=== PATIENT | female | born 1970 | race Caucasian/White ===

== ENCOUNTER → 2018-04-05 | Outpatient (CLI) | payer BC ==
--- NOTE | 2018-04-05 15:43 | XR ---
EXAMINATION TYPE: XR soft tissue neck DATE OF EXAM: 04/05/2018 COMPARISON: NONE HISTORY: Palpable abnormality of the neck. TECHNIQUE: Frontal and lateral soft tissue neck radiographs were obtained FINDINGS: There is no evidence of prevertebral soft tissue swelling. There is straightening of the us ual cervical lordosis. Anterior bridging osteophyte is seen at C4-C5. No radio opaque foreign body is seen. Airway is maintained. Lung apices are unremarkable. IMPRESSION: No radiographic abnormality of the soft tissues in the neck. Mild degenerative changes of the cervical spine. CT or targeted ultrasound could be performed for further evaluation of the palpa ble abnormality.
== END | disposition home or self-care (01) ==
LOC: RADXRMAIN 15:15
PROVIDERS: ATTEND Nurse Practitioner Family
DX: J02.9 Acute pharyngitis, unspecified (principal)
CPT/HCPCS: 70360

== ENCOUNTER → 2019-11-18 | Outpatient (CLI) | payer BC ==
--- NOTE | 2019-11-24 09:33 | MM ---
Reason for exam: screening (asymptomatic). Last mammogram was performed 5 years and 1 month ago. History: Took hormonal contraceptives for 10 years. Physical Findings: A clinical breast exam by your physician is recommended on an annual basis and results should be correlated with mammographic findings. MG 3D Screening Mammo W/Cad Bilateral CC and MLO view(s) were taken. Prior study comparison: October 13, 2014, mammogram, performed at [facility]. There is a stable left upper outer quadrant middle septh mass back to 2013. No suspicious abnormality. No significant changes when compared with prior studies. ASSESSMENT: Benign, BI-RAD 2 RECOMMENDATION: Routine screening mammogram of both breasts in 1 year.
== END | disposition home or self-care (01) ==
LOC: RADMAMWWP 16:05
PROVIDERS: ATTEND Family Medicine
DX: Z12.31 Encounter for screening mammogram for malignant neoplasm of breast (principal)
CPT/HCPCS: 77063; 77067

== ENCOUNTER → 2021-08-22 | Outpatient (CLI) | payer BC | END | disposition home or self-care (01) | LOC: LABWHC1 11:38 | PROVIDERS: ATTEND Family Medicine | DX: Z20.822 Contact with and (suspected) exposure to COVID-19 (principal); J06.9 Acute upper respiratory infection, unspecified | CPT/HCPCS: 87502; U0003; C9803 ==

== ENCOUNTER 2021-08-26 15:28 | Inpatient (IN) | payer BC ==
--- NOTE | 2021-08-26 18:11 | XR ---
EXAMINATION TYPE: XR chest 2V DATE OF EXAM: 08/26/2021 COMPARISON: NONE HISTORY: 50 years Female. STUDY INDICATION GIVEN: cough, rib pain . TECHNIQUE: Frontal and lateral chest radiographs IMPRESSION: There is mild prominence of the peripheral interstitium in the lower lobes which is nonspecific but m ay be reflective of an interstitial edema related process such as atypical pneumonia. No focal airspace opacity, pneumothorax or pleural effusion. The heart is enlarged. No acute osseous abnormalities seen.
--- NOTE | 2021-08-26 18:19 | ED ---
General Adult HPI - General Chief complaint: Shortness of Breath Stated complaint: Coughing up blood Time Seen by Provider: 08/26/21 17:54 Source: patient, RN notes reviewed Mode of arrival: ambulatory Limitations: no limitations - History of Present Illness Initial comments: Well-appearing 50-year-old female, alert and oriented 4, presents to the [facility] room with 10 days of cough. Patient states 3 weeks ago she developed some diarrhea was tested for coronavirus and was negative. For the past 10 days she's had cough with epigastric abdominal pain radiates around to her posterior right ribs. She states that she's been feeling worsening shortness of breath over the past 3 days and today was coughing up some blood. She was seen by her primary care doctor who put her on steroids and antibiotics this week. She states she is unable to tolerate steroids but was unable to finish the antibiotics yesterday. Oxygen saturation is 99%. She does have a history of seizures. -: days(s) (10) Location: chest (Right-sided rib), abdomen (Epigastric) Severity scale (1-10): 2 Quality: aching Consistency: constant Improves with: rest Worsens with: other (Cough) Associated Symptoms: cough (With hemoptysis) Treatments Prior to Arrival: none - Related Data Home Medications Medication Instructions Recorded Confirmed clonazePAM [KlonoPIN] 0.5 mg PO TID PRN 04/11/14 08/26/21 lamoTRIgine [LaMICtal] 200 mg PO TID 04/11/14 08/26/21 Losartan [Cozaar] 25 mg PO DAILY 08/26/21 08/26/21 Zonisamide [Zonegran] 200 mg PO BID 08/26/21 08/26/21 lamoTRIgine [LaMICtal] 100 mg PO HS PRN 08/26/21 08/26/21 levETIRAcetam [Keppra] 1,000 mg PO HS 08/26/21 08/26/21 Allergies Allergy/AdvReac Type Severity Reaction Status Date / Time carbamazepine [From Tegretol] Allergy Unknown Verified 08/26/21 18:49 phenytoin sodium Allergy Unknown Verified 08/26/21 18:49 [From Dilantin] phenytoin sodium extended Allergy Unknown Verified 08/26/21 18:49 [From Dilantin] Review of Systems ROS Statement: Those systems with pertinent positive or pertinent negative responses have been documented in the HPI. ROS Other: All systems not noted in ROS Statement are negative. Past Medical History Past Medical History: Seizure Disorder History of Any Multi-Drug Resistant Organisms: None Reported Additional Past Surgical History / Comment(s): BUNION RIGHT FOOT Past Psychological History: No Psychological Hx Reported Smoking Status: Never smoker Past Alcohol Use History: Occasional Past Drug Use History: None Reported General Exam Limitations: no limitations General appearance: alert, in no apparent distress Head exam: Present: atraumatic, normocephalic, normal inspection Eye exam: Present: normal appearance, EOMI. Absent: scleral icterus, conjunctival injection, periorbital swelling ENT exam: Present: normal exam, normal oropharynx, mucous membranes moist Neck exam: Present: normal inspection, full ROM. Absent: tenderness, meningismus, lymphadenopathy Respiratory exam: Present: normal lung sounds bilaterally. Absent: respiratory distress, wheezes, rales, rhonchi, stridor Cardiovascular Exam: Present: regular rate, normal rhythm, normal heart sounds. Absent: systolic murmur, diastolic murmur, rubs, gallop, clicks GI/Abdominal exam: Present: soft, normal bowel sounds. Absent: distended, tenderness, guarding, rebound, rigid Extremities exam: Present: normal inspection, full ROM, normal capillary refill. Absent: tenderness, pedal edema, joint swelling, calf tenderness Back exam: Absent: tenderness, CVA tenderness (R), CVA tenderness (L) Neurological exam: Present: alert, oriented X3, normal gait Psychiatric exam: Present: normal affect, normal mood Skin exam: Present: warm, dry, intact, normal color. Absent: rash, cyanosis, diaphoretic Course Vital Signs 08/26/21 08/26/21 08/26/21 17:09 19:12 22:00 Temperature 98.5 F Pulse Rate 90 87 98 Respiratory 18 18 18 Rate Blood Pressure 121/81 133/77 136/81 O2 Sat by Pulse 99 98 99 Oximetry EKG Findings - EKG Results: EKG: sinus rhythm (Ventricular rate of 80, [place] interval 0.182, QRS of 0.72, QTC 0.447) Medical Decision Making - Medical Decision Making Patient was seen by primary care doctor and tested negative for Covid on Sunday. She was prescribed and finished her antibiotics but was unable to tolerate the steroids. She is coming in today coughing up blood with shortness of breath. Chest x-ray shows no acute osseous abnormalities. No pneumothorax or pleural effusion noted. CT images show an acute pulmonary arterial embolism with a right lower lobe peripheral segmental infarction. There is ground glass like opacities concerning for multifocal infection. Patient is covid positive. Patient will be admitted and started on heparin. Patient is agreeable to this plan of care. Case discussed with Dr. Dinero. - Lab Data Result diagrams: 08/26/21 19:10 08/26/21 19:10 Lab Results 08/26/21 08/26/21 08/26/21 Range/Units 19:10 19:10 19:10 WBC 5.1 (3.8-10.6) k/uL RBC 4.07 (3.80-5.40) m/uL Hgb 12.2 (11.4-16.0) gm/dL Hct 37.6 (34.0-46.0) % MCV 92.3 (80.0-100.0) fL MCH 30.0 (25.0-35.0) pg MCHC 32.5 (31.0-37.0) g/dL RDW 12.1 (11.5-15.5) % Plt Count 373 (150-450) k/uL MPV 7.4 Neutrophils % 61 % Lymphocytes % 27 % Monocytes % 6 % Eosinophils % 2 % Basophils % 1 % Neutrophils # 3.2 (1.3-7.7) k/uL Lymphocytes # 1.4 (1.0-4.8) k/uL Monocytes # 0.3 (0-1.0) k/uL Eosinophils # 0.1 (0-0.7) k/uL Basophils # 0.0 (0-0.2) k/uL PT 10.2 (9.0-12.0) sec INR 0.9 (<1.2) APTT 23.4 (22.0-30.0) sec D-Dimer 3.92 H (<0.60) mg/L FEU Sodium 140 (137-145) mmol/L Potassium 3.6 (3.5-5.1) mmol/L Chloride 104 (98-107) mmol/L Carbon Dioxide 27 (22-30) mmol/L Anion Gap 9 mmol/L BUN 13 (7-17) mg/dL Creatinine 0.70 (0.52-1.04) mg/dL Est GFR (CKD-EPI)AfAm >90 (>60 ml/min/1.73 sqM) Est GFR (CKD-EPI)NonAf >90 (>60 ml/min/1.73 sqM) Glucose 98 (74-99) mg/dL Calcium 9.2 (8.4-10.2) mg/dL Magnesium 2.1 (1.6-2.3) mg/dL Total Bilirubin 0.2 (0.2-1.3) mg/dL AST 18 (14-36) U/L ALT 12 (4-34) U/L Alkaline Phosphatase 112 (38-126) U/L Troponin I (0.000-0.034) ng/mL Total Protein 6.2 L (6.3-8.2) g/dL Albumin 3.5 (3.5-5.0) g/dL Coronavirus (PCR) (Not Detectd) 08/26/21 08/26/21 Range/Units 19:10 23:15 WBC (3.8-10.6) k/uL RBC (3.80-5.40) m/uL Hgb (11.4-16.0) gm/dL Hct (34.0-46.0) % MCV (80.0-100.0) fL MCH (25.0-35.0) pg MCHC (31.0-37.0) g/dL RDW (11.5-15.5) % Plt Count (150-450) k/uL MPV Neutrophils % % Lymphocytes % % Monocytes % % Eosinophils % % Basophils % % Neutrophils # (1.3-7.7) k/uL Lymphocytes # (1.0-4.8) k/uL Monocytes # (0-1.0) k/uL Eosinophils # (0-0.7) k/uL Basophils # (0-0.2) k/uL PT (9.0-12.0) sec INR (<1.2) APTT (22.0-30.0) sec D-Dimer (<0.60) mg/L FEU Sodium (137-145) mmol/L Potassium (3.5-5.1) mmol/L Chloride (98-107) mmol/L Carbon Dioxide (22-30) mmol/L Anion Gap mmol/L BUN (7-17) mg/dL Creatinine (0.52-1.04) mg/dL Est GFR (CKD-EPI)AfAm (>60 ml/min/1.73 sqM) Est GFR (CKD-EPI)NonAf (>60 ml/min/1.73 sqM) Glucose (74-99) mg/dL Calcium (8.4-10.2) mg/dL Magnesium (1.6-2.3) mg/dL Total Bilirubin (0.2-1.3) mg/dL AST (14-36) U/L ALT (4-34) U/L Alkaline Phosphatase (38-126) U/L Troponin I <0.012 (0.000-0.034) ng/mL Total Protein (6.3-8.2) g/dL Albumin (3.5-5.0) g/dL Coronavirus (PCR) Detected A (Not Detectd) Disposition Clinical Impression: Pulmonary embolism Disposition: ADMITTED IP TO THIS [facility] Referrals: Joe Centeno MD [Primary Care Provider] - 1-2 days Decision Date: 08/26/21 Decision Time: 22:26
[2021-08-26] MEDS ORDERED: SODIUM CHLORIDE 0.9% 500 ML 500 ML IV STA (18:25)
[2021-08-26 19:43] LABS: Basophils % (A) 1 %; Eosinophils # (A) 0.1 k/uL (0-0.7); Eosinophils % (A) 2 %; HCT 37.6 % (34.0-46.0); HGB 12.2 gm/dL (11.4-16.0); Lymphocytes # (A) 1.4 k/uL (1.0-4.8); Lymphocytes % (A) 27 %; MCHC 32.5 g/dL (31.0-37.0); MCV 92.3 fL (80.0-100.0); Mean Platelet Volume 7.4; Monocytes # (A) 0.3 k/uL (0-1.0); Monocytes % (A) 6 %; Neutrophils # (A) 3.2 k/uL (1.3-7.7); Neutrophils % (A) 61 %; Platelet Count 373 k/uL (150-450); RBC 4.07 m/uL (3.80-5.40); RDW 12.1 % (11.5-15.5); WBC 5.1 k/uL (3.8-10.6)
[2021-08-26 20:05] LABS: INR 0.9 (<1.2); Partial Thromboplastin Time 23.4 sec (22.0-30.0); Prothrombin Time 10.2 sec (9.0-12.0)
[2021-08-26 21:37] LABS: ALT 12 U/L (4-34); AST 18 U/L (14-36); African American GFR (CKD) >90 (>60 ml/min/1.73 sqM); Albumin 3.5 g/dL (3.5-5.0); Alkaline Phosphatase 112 U/L (38-126); Anion Gap 9 mmol/L; Blood Urea Nitrogen 13 mg/dL (7-17); Calcium 9.2 mg/dL (8.4-10.2); Carbon Dioxide 27 mmol/L (22-30); Chloride 104 mmol/L (98-107); Glucose 98 mg/dL (74-99); Magnesium 2.1 mg/dL (1.6-2.3); Non-African American GFR(CKD) >90 (>60 ml/min/1.73 sqM); Potassium 3.6 mmol/L (3.5-5.1); Sodium 140 mmol/L (137-145); Total Bilirubin 0.2 mg/dL (0.2-1.3); Total Protein 6.2 g/dL (6.3-8.2)
[2021-08-26] MEDS ORDERED: HEPARIN SODIUM 1,000 UN/ML (10ML VL) IV PRN (22:07)
[2021-08-26] MEDS ORDERED: HEPARIN SODIUM 1,000 UN/ML (10ML VL) IV ONE (22:07)
--- NOTE | 2021-08-26 22:10 | CT ---
EXAMINATION TYPE: CT angio chest DATE OF EXAM: 08/26/2021 9:05 PM COMPARISON: HISTORY: hemoptysis CT DLP: 313.2 mGycm Automated exposure control for dose reduction was used. CONTRAST: CTA scan of the thorax is performed with IV Contrast, patient injected with 73cc mL of Isovue 370, pu lmonary embolism protocol. . FINDINGS: LUNGS: There is a right lower lobe wedge-shaped opacity concerning for infarction. There are scattere d use nodular and groundglass like opacities concerning for multifocal infection. There is no pneumot horax or pleural effusion. There are prominent mediastinal lymph nodes without logically enlarged lymph nodes more than 1 cm in short axis in the mediastinum or andrea. Heart is not enlarged. There is trace pericardial effusion. The pulmonary artery diameter is less shabana n 3 cm. Intrathoracic aorta is normal in course and caliber. MEDIASTINUM: There is satisfactory enhancement of the pulmonary artery and its branches. There are mu ltiple occlusive and nonocclusive filling defects in the pulmonary artery. There is a nonocclusive fi lling defect in the left lower lobe lobar artery extending to its bifurcation point. There is a near complete filling defect in the right main pulmonary artery which extends into the right upper lobar p ulmonary artery, right middle and right lower lobar pulmonary arteries in addition to complete occlus ion of the right lower lobe segmental pulmonary artery. OTHER: Upper abdomen is unremarkable. No acute osseous abnormalities appreciated. IMPRESSION: 1. ACUTE PULMONARY ARTERIAL EMBOLISM. 2. RIGHT LOWER LOBE PERIPHERAL SEGMENTAL INFARCTION SECONDARY TO OLD. 3. MULTIFOCAL PNEUMONIA. DR. SEGAL CALLED PROVIDER JOHNNY ANAYA WITH ABOVE CRITICAL FINDINGS @10:06 PM ON 08/26/21. COMMUNIC ATION ACKNOWLEDGED.
[2021-08-26] MEDS ORDERED: NALOXONE 0.4 MG/ML 1 ML VIAL IV PRN (22:40)
[2021-08-26] MEDS: HEPARIN SOD,PORK IN 0.45% NACL 25,000 UNIT in 0.45% NACL 1 250ML.BAG IV SCH (23:24)
[2021-08-26] MEDS ORDERED: lamoTRIgine 100 MG TAB PO PRN (23:27)
[2021-08-26] MEDS ORDERED: clonazePAM 0.5 MG TAB PO PRN (23:27)
[2021-08-27] MEDS: lamoTRIgine 100 MG TAB PO SCH ×4 (01:13→16:20)
[2021-08-27] MEDS: levETIRAcetam 500 MG TAB PO SCH ×2 (01:14→21:00)
[2021-08-27 06:41] LABS: Basophils % (A) 1 %; Eosinophils # (A) 0.1 k/uL (0-0.7); Eosinophils % (A) 2 %; HCT 34.8 % (34.0-46.0); HGB 11.3 gm/dL (11.4-16.0); Lymphocytes # (A) 1.6 k/uL (1.0-4.8); Lymphocytes % (A) 30 %; MCH 30.2 pg (25.0-35.0); MCHC 32.4 g/dL (31.0-37.0); MCV 93.2 fL (80.0-100.0); Mean Platelet Volume 6.7; Monocytes # (A) 0.2 k/uL (0-1.0); Monocytes % (A) 5 %; Neutrophils # (A) 3.2 k/uL (1.3-7.7); Neutrophils % (A) 61 %; Platelet Count 346 k/uL (150-450); RBC 3.74 m/uL (3.80-5.40); RDW 12.2 % (11.5-15.5); WBC 5.2 k/uL (3.8-10.6)
[2021-08-27] MEDS: LOSARTAN 25 MG TAB PO SCH (08:43)
[2021-08-27] MEDS: FAMOTIDINE 20 MG/2 ML VIAL IV SCH ×2 (08:43→21:00)
--- NOTE | 2021-08-27 11:24 | P.CNPUL ---
History of Present Illness Consult date: 08/27/21 Requesting physician: Oli Manzo Reason for consult: dyspnea, hypoxemia, pneumonia Chief complaint: Dyspnea, cough History of present illness: 50-year-old female patient with past medical history of seizure disorder, previous history of hysterectomy who developed symptoms of diarrhea 3 weeks ago. She tested positive for COVID 19 on an outpatient basis. Presented to the emergency department on 08/26/2021 with complaints of worsening cough, hemoptysis, epigastric abdominal discomfort and posterior right rib area discomfort with coughing. She initially went to her primary care physician who started her on steroids and antibiotics this week. She states she has been unable to tolerate steroids, but did complete antibiotics yesterday. Chest x- ray showed no acute pulmonary abnormality. Laboratory evaluation revealed CBC within normal limits, elevated d-dimer of 3.92, electrolytes and renal profile were unremarkable, troponin was less than 0.012, patient did test positive for COVID-19 via PCR test. CTA chest was completed based on the elevated d-dimer level, showing multiple occlusive and nonocclusive filling defects in the left lower lobe lobar artery extending to the bifurcation point, and a near complete filling defect in the right main pulmonary artery which extends into the right upper lobar pulmonary artery, right middle and right lower lobar pulmonary arteries and complete occlusion of the right lower lobe segmental pulmonary artery. There are scattered glasslike opacities concerning for multifocal infection, and right lower lobe wedge shaped opacity concerning for pulmonary infarction. Based on those findings patient was started on high intensity heparin infusion. Is on 2 L of oxygen her pulse ox is 100%, hemodynamically she stable, she is afebrile. Review of Systems All systems: negative Constitutional: Denies chills, Denies fever Eyes: denies blurred vision, denies pain Ears, nose, mouth and throat: Denies headache, Denies sore throat Cardiovascular: Denies chest pain, Denies shortness of breath Respiratory: Reports dyspnea, Reports hemoptysis, Reports pain on inspiration, Reports respiratory infections, Denies cough Gastrointestinal: Denies abdominal pain, Denies diarrhea, Denies nausea, Denies vomiting Genitourinary: Denies dysuria, Denies hematuria Musculoskeletal: Denies myalgias Integumentary: Denies pruritus, Denies rash Neurological: Denies numbness, Denies weakness Psychiatric: Denies anxiety, Denies depression Endocrine: Denies fatigue, Denies weight change Past Medical History Past Medical History: Seizure Disorder Additional Past Medical History / Comment(s): epilepsy History of Any Multi-Drug Resistant Organisms: None Reported Past Surgical History: Hysterectomy Additional Past Surgical History / Comment(s): BUNION bilat feet, right forearm precancerous cells removed. Past Anesthesia/Blood Transfusion Reactions: No Reported Reaction Past Psychological History: No Psychological Hx Reported Smoking Status: Never smoker Past Alcohol Use History: Occasional Past Drug Use History: None Reported Medications and Allergies Home Medications Medication Instructions Recorded Confirmed Type clonazePAM [KlonoPIN] 0.5 mg PO TID PRN 04/11/14 08/26/21 History lamoTRIgine [LaMICtal] 200 mg PO TID 04/11/14 08/26/21 History Losartan [Cozaar] 25 mg PO DAILY 08/26/21 08/26/21 History Zonisamide [Zonegran] 200 mg PO BID 08/26/21 08/26/21 History lamoTRIgine [LaMICtal] 100 mg PO HS PRN 08/26/21 08/26/21 History levETIRAcetam [Keppra] 1,000 mg PO HS 08/26/21 08/26/21 History Allergies Allergy/AdvReac Type Severity Reaction Status Date / Time carbamazepine [From Tegretol] Allergy Unknown Verified 08/26/21 18:49 phenytoin sodium Allergy Unknown Verified 08/26/21 18:49 [From Dilantin] phenytoin sodium extended Allergy Unknown Verified 08/26/21 18:49 [From Dilantin] Physical Exam Vitals: Vital Signs Temp Pulse Pulse Resp BP BP Pulse Ox 08/27/21 07:54 98.1 F 84 18 110/74 95 08/27/21 04:00 79 17 118/78 100 08/27/21 00:00 87 22 131/81 97 08/26/21 22:00 98 18 136/81 99 08/26/21 19:12 87 18 133/77 98 08/26/21 17:09 98.5 F 90 18 121/81 99 Intake and Output 08/26/21 08/27/21 08/27/21 22:59 06:59 14:59 Intake Total 485 378.576 Balance 485 378.576 Intake: Intake, IV Titration 118.576 Amount Heparin Sod,Pork in 0.45% 118.576 NaCl 25,000 unit In 0.45 % NaCl 1 250ml.bag @ 18 UNITS/KG/HR 12.819 mls/hr IV [id number] Rx#: [id number] Oral 485 260 Other: # Voids 1 1 Weight 71.214 kg 71.214 kg GENERAL EXAM: Alert, pleasant, 50-year-old white female, on 2 L of oxygen a pulse ox of 100%, sitting up on the edge of the gurney in the emergency department comfortable in no apparent distress. HEAD: Normocephalic/atraumatic. EYES: Normal reaction of pupils, equal size. Conjunctiva pink, sclera white. NOSE: Clear with pink turbinates. THROAT: No erythema or exudates. NECK: No masses, no JVD, no thyroid enlargement, no adenopathy. CHEST: No chest wall deformity. Symmetrical expansion. LUNGS: Equal air entry with rhonchi and rales CVS: Regular rate and rhythm, normal S1 and S2, no gallops, no murmurs, no rubs ABDOMEN: Soft, nontender. No hepatosplenomegaly, normal bowel sounds, no guarding or rigidity. EXTREMITIES: No clubbing, no edema, no cyanosis, 2+ pulses and upper and lower extremities. MUSCULOSKELETAL: Muscle strength and tone normal. SPINE: No scoliosis or deformity SKIN: No rashes CENTRAL NERVOUS SYSTEM: Alert and oriented -3. No focal deficits, tone is normal in all 4 extremities. PSYCHIATRIC: Alert and oriented -3. Appropriate affect. Intact judgment and insight. Results - Laboratory Findings CBC and BMP: 08/27/21 05:53 08/26/21 19:10 PT/INR, D-dimer PT 10.2 sec (9.0-12.0) 08/26/21 19:10 INR 0.9 (<1.2) 08/26/21 19:10 D-Dimer 3.92 mg/L FEU (<0.60) H 08/26/21 19:10 Abnormal lab findings: Abnormal Labs 08/26/21 08/26/21 08/26/21 19:10 19:10 23:15 RBC Hgb APTT D-Dimer 3.92 H Total Protein 6.2 L Coronavirus (PCR) Detected A 08/27/21 08/27/21 05:53 05:53 RBC 3.74 L Hgb 11.3 L APTT 49.3 H D-Dimer Total Protein Coronavirus (PCR) - Diagnostic Findings Chest x-ray: report reviewed, image reviewed CT scan - chest: report reviewed, image reviewed Assessment and Plan Plan: Assessment: #1. Acute hypoxic respiratory failure related to bilateral pulmonary emboli and right lower lobe pulmonary infarction. This is likely provoked by recent COVID- 19 pneumonia #2. COVID-19 related pneumonia, with initial onset of symptoms 3 weeks ago. Patient is outside the window for Remdesivir, she will be started on oral Decadron 6 mg daily #3. History of seizure disorder #4. History of hysterectomy Plan: We will add Decadron 6 mg daily Continue heparin infusion Echocardiogram is pending Hemodynamically stable Continue COVID-19 vitamins Continue monitoring for worsening or hypoxia I performed a history & physical examination of the patient and discussed their management with my nurse practitioner, Emily Guzman. I reviewed the nurse practitioner's note and agree with the documented findings and plan of care. Lung sounds are positive for bilateral crackles throughout the lung dumont. The findings and the impression was discussed with the patient. I attest to the documentation by the nurse practitioner. Time with Patient: Greater than 30
[2021-08-27] MEDS: dexAMETHasone 2 MG TAB PO SCH (13:00)
--- NOTE | 2021-08-27 14:00 | P.HPIM ---
History of Present Illness This is a pleasant 50 years old female with past medical history of seizure disorder Patient presents because of right-sided chest wall pain and tenderness associated with coughing up blood 3 days. She called her PCP who prescribed her antibiotic with no improvement and then he asked her to come to emergency room She is complaining of from pleuritic-like right-sided chest pain that comes up with coughing only. She's been having these symptoms of hemoptysis and chest pain for the last 4 days. No dyspnea. No GI or urinary complaints. No headache or weakness. Denies smoking, alcohol or illicit tracts. Vitas looks stable and patient is saturating 99% on 2 L oxygen. Afebrile. Labs including CBC, INR, BMP and liver enzymes are unremarkable. Troponin is negative. D-dimer 3.9 elevated. CTA of the chest: Acute pulmonary arterial embolism. Right lower lobe peripheral segment infarction. Multifocal pneumonia per radiologist In the emergency room patient was started on high-dose heparin drip and pulmonary and cardiothoracic surgery teams were consulted Patient was informed to bring her Lamictal for her seizure from her home medication and she agrees. Daughter at bedside Review of Systems CONSTITUTIONAL: No fever, no malaise, no fatigue. HEENT: No recent visual problems or hearing problems. Denied any sore throat. CARDIOVASCULAR: No orthopnea, PND, no palpitations, no syncope. PULMONARY: No chest wall tenderness, no hemoptysis. GASTROINTESTINAL: No diarrhea, no nausea, no vomiting, no abdominal pain. Normoactive bowel sounds. NEUROLOGICAL: No headaches, no weakness, no numbness. HEMATOLOGICAL: Denies any bleeding or petechiae. GENITOURINARY: Denies any burning micturition, frequency, or urgency. MUSCULOSKELETAL/RHEUMATOLOGICAL: Denies any joint pain, swelling, or any muscle pain. ENDOCRINE: Denies any polyuria or polydipsia. Past Medical History Past Medical History: Seizure Disorder History of Any Multi-Drug Resistant Organisms: None Reported Additional Past Surgical History / Comment(s): BUNION RIGHT FOOT Past Psychological History: No Psychological Hx Reported Smoking Status: Never smoker Past Alcohol Use History: Occasional Past Drug Use History: None Reported Medications and Allergies Home Medications Medication Instructions Recorded Confirmed Type clonazePAM [KlonoPIN] 0.5 mg PO TID PRN 04/11/14 08/26/21 History lamoTRIgine [LaMICtal] 200 mg PO TID 04/11/14 08/26/21 History Losartan [Cozaar] 25 mg PO DAILY 08/26/21 08/26/21 History Zonisamide [Zonegran] 200 mg PO BID 08/26/21 08/26/21 History lamoTRIgine [LaMICtal] 100 mg PO HS PRN 08/26/21 08/26/21 History levETIRAcetam [Keppra] 1,000 mg PO HS 08/26/21 08/26/21 History Allergies Allergy/AdvReac Type Severity Reaction Status Date / Time carbamazepine [From Tegretol] Allergy Unknown Verified 08/26/21 18:49 phenytoin sodium Allergy Unknown Verified 08/26/21 18:49 [From Dilantin] phenytoin sodium extended Allergy Unknown Verified 08/26/21 18:49 [From Dilantin] Physical Exam Vitals: Vital Signs Temp Pulse Resp BP Pulse Ox 08/26/21 22:00 98 18 136/81 99 08/26/21 19:12 87 18 133/77 98 08/26/21 17:09 98.5 F 90 18 121/81 99 Intake and Output 08/26/21 08/26/21 08/27/21 14:59 22:59 06:59 Other: Weight 71.214 kg GENERAL: The patient is alert and oriented x3, not in any acute distress. Well developed, well nourished. HEENT: Pupils are round and equally reacting to light. EOMI. No scleral icterus. No conjunctival pallor. Normocephalic, atraumatic. No pharyngeal erythema. No thyromegaly. CARDIOVASCULAR: S1 and S2 present. No murmurs, rubs, or gallops. PULMONARY: Chest is clear to auscultation, no wheezing or crackles. ABDOMEN: Soft, nontender, nondistended, normoactive bowel sounds. No palpable organomegaly. MUSCULOSKELETAL: No joint swelling or deformity. EXTREMITIES: No cyanosis, clubbing, or pedal edema. NEUROLOGICAL: Gross neurological examination did not reveal any focal deficits. SKIN: No rashes. No petechiae Results CBC & Chem 7: 08/27/21 05:53 08/26/21 19:10 Labs: Abnormal Lab Results - Last 24 Hours (Table) 08/26/21 08/26/21 Range/Units 19:10 19:10 D-Dimer 3.92 H (<0.60) mg/L FEU Total Protein 6.2 L (6.3-8.2) g/dL Assessment and Plan Assessment: Acute bilateral PE-Acute bilateral pulmonary embolism, with near complete filling defect in the right main pulmonary artery which extends into the right upper lobar pulmonary artery, right middle and right lower lobe pulmonary arteries. Include addition to complete occlusion of the right lower lobe segmental pulmonary artery Hemoptysis secondary to above History of seizure disorder Plan: This is a pleasant 50 years old female presents with acute bilateral PE Continue with high dose heparin drip Follow-up with vascular team consult Pulmonary consult Check echocardiogram Labs and medication were reviewed.. Continue same treatment. Continue with symptomatic treatment. Resume home medication. Monitor lytes and vitals. DVT and GI prophylaxis. Further recommendations depends on the clinical course of the patient DVT prophylaxis: heparin GI Prophylaxis: Pepcid Prognosis is guarded
[2021-08-27] MEDS: ASCORBIC ACID 500 MG TAB PO SCH (16:17)
[2021-08-27] MEDS: ZINC SULFATE 220 MG CAP PO SCH (16:17)
[2021-08-27] MEDS: CHOLECALCIFEROL 25 MCG (1000 IU) TABLET PO SCH (16:18)
[2021-08-27] MEDS: HEPARIN SOD,PORK IN 0.45% NACL 25,000 UNIT in 0.45% NACL 1 250ML.BAG IV SCH (16:19)
[2021-08-27] MEDS ORDERED: lamoTRIgine 100 MG TAB PO SCH (16:37)
[2021-08-27] MEDS ORDERED: LAMICTAL 200 MG PO PRN (16:47)
--- NOTE | 2021-08-27 17:00 | ECHOF ---
Referral Reason:Bilateral pulmonary embolism MEASUREMENTS -------- HEIGHT: 165.1 cm WEIGHT: 71.2 kg BP: 117/65 RVIDd: 2.6 cm (< 3.3) IVSd: 1.1 cm (0.6 - 1.1) LVIDd: 4.5 cm (3.9 - 5.3) LVPWd: 1.0 cm (0.6 - 1.1) IVSs: 1.9 cm LVIDs: 1.8 cm LVPWs: 2.0 cm LA Diam: 3.5 cm (2.7 - 3.8) Ao Diam: 2.5 cm (2.0 - 3.7) AV Cusp: 1.5 cm (1.5 - 2.6) LA Diam: 3.6 cm (2.7 - 3.8) MV EXCURSION: 13.362 mm (> 18.000) MV EF SLOPE: 97 mm/s (70 - 150) EPSS: 0.1 cm MV E Idris: 0.96 m/s MV DecT: 198 ms MV A Idris: 0.70 m/s MV E/A Ratio: 1.37 RAP: 5.00 mmHg RVSP: 23.79 mmHg FINDINGS -------- Sinus rhythm. This was a technically difficult study with suboptimal apical views. The left ventricular size is normal. Left ventricular wall thickness is normal. Overall left vent ricular systolic function is normal with, an EF between 55 - 60 %. The diastolic filling pattern is normal for the age of the patient 9.83. The right ventricle is normal in size. The left atrial size is normal. The right atrium was not well visualized. 5.0mg of Lumason was utilized for enhancement of images Interatrial and interventricular septum intact. There is no evidence of aortic regurgitation. There is no evidence of aortic stenosis. No mitral regurgitation. Mild tricuspid regurgitation present. There is no evidence of pulmonary hypertension. The right v entricular systolic pressure, as measured by Doppler, is 23.79mmHg. There is no pulmonic regurgitation present. The aortic root size is normal. Normal inferior vena cava with normal inspiratory collapse consistent with estimated right atrial pre ssure of 5 mmHg. There is a small pericardial effusion located near the left ventricle. CONCLUSIONS -------- 1. The left ventricular size is normal. 2. Left ventricular wall thickness is normal. 3. Overall left ventricular systolic function is normal with, an EF between 55 - 60 %. 4. The diastolic filling pattern is normal for the age of the patient 9.83 5. Mild tricuspid regurgitation present. 6. There is a small pericardial effusion located near the left ventricle. PERINATAL SPECIALIST: Bre Rucker RDCS
[2021-08-27] MEDS: LAMICTAL 200 MG PO SCH (21:01)
--- NOTE | 2021-08-27 22:38 | US ---
EXAMINATION TYPE: US venous doppler duplex LE BI DATE OF EXAM: 08/27/2021 9:45 PM COMPARISON: CT angio chest CLINICAL HISTORY: leg swelling. rashi pulmonary embolism SIDE PERFORMED: Bilateral TECHNIQUE: The lower extremity deep venous system is examined utilizing real time linear array sonog darlene with graded compression, doppler sonography and color-flow sonography. VESSELS IMAGED: Common Femoral Vein Deep Femoral Vein Greater Saphenous Vein * Femoral Vein Popliteal Vein Small Saphenous Vein * Proximal Calf Veins (* superficial vessels) Right Leg: Negative for DVT Left Leg: Negative for DVT IMPRESSION: Negative bilateral leg duplex venous sonogram.
[2021-08-28 08:54] VITALS: RESP 18; TEMP 98
[2021-08-28] MEDS: ASCORBIC ACID 500 MG TAB PO SCH (08:54)
[2021-08-28] MEDS: dexAMETHasone 2 MG TAB PO SCH (08:54)
[2021-08-28] MEDS: LOSARTAN 25 MG TAB PO SCH (08:54)
[2021-08-28] MEDS: ZINC SULFATE 220 MG CAP PO SCH (08:54)
[2021-08-28] MEDS: CHOLECALCIFEROL 25 MCG (1000 IU) TABLET PO SCH (08:55)
[2021-08-28] MEDS: LAMICTAL 200 MG PO SCH ×2 (08:56→18:06)
[2021-08-28] MEDS ORDERED: FAMOTIDINE 20 MG TAB PO SCH (09:00)
--- NOTE | 2021-08-28 10:56 | P.PN ---
Subjective This is a pleasant 50 years old female with past medical history of seizure disorder Patient presents because of right-sided chest wall pain and tenderness associated with coughing up blood 3 days. She called her PCP who prescribed her antibiotic with no improvement and then he asked her to come to emergency room She is complaining of from pleuritic-like right-sided chest pain that comes up with coughing only. She's been having these symptoms of hemoptysis and chest pain for the last 4 days. No dyspnea. No GI or urinary complaints. No headache or weakness. Denies smoking, alcohol or illicit tracts. Vitas looks stable and patient is saturating 99% on 2 L oxygen. Afebrile. Labs including CBC, INR, BMP and liver enzymes are unremarkable. Troponin is negative. D-dimer 3.9 elevated. CTA of the chest: Acute pulmonary arterial embolism. Right lower lobe peripheral segment infarction. Multifocal pneumonia per radiologist In the emergency room patient was started on high-dose heparin drip and pulmonary and cardiothoracic surgery teams were consulted Patient was informed to bring her Lamictal for her seizure from her home medication and she agrees. Daughter at bedside 08/28/2021 Patient has no significant dyspnea or tachypnea while sitting in bed this morning. No chest pain, she still have some hemoptysis this morning. She is saturating 97% on 2 L oxygen via nasal cannula Blood pressure and heart rate are stable. Repeat hemoglobin is pending. Ejection fraction is 55-60% Elevated d-dimer of 3.9. Ultrasound of the leg is negative for DVT and ultrasound of the legs. Vascular surgery team consulted Objective - Vital Signs Vital signs: Vital Signs Temp 98.0 F 08/28/21 08:53 Pulse 81 08/28/21 08:53 Resp 18 08/28/21 08:53 BP 131/73 08/28/21 08:53 Pulse Ox 97 08/28/21 08:53 Intake & Output 08/27/21 08/28/21 08/28/21 19:59 06:59 18:59 Intake Total 118 Balance 118 Intake: IV Invasive Line 2 Intake, IV Titration Amount Heparin Sod,Pork in 0.45% NaCl 25,000 unit In 0.45 % NaCl 1 250ml.bag @ 18 UNITS/KG/HR 12.819 mls/hr IV .[id number] [facility] Rx#: [id number] Oral 118 Other: Voiding Method Toilet # Voids - Exam GENERAL: The patient is alert and oriented x3, not in any acute distress. Well developed, well nourished. HEENT: Pupils are round and equally reacting to light. EOMI. No scleral icterus. No conjunctival pallor. Normocephalic, atraumatic. No pharyngeal erythema. No th yromegaly. CARDIOVASCULAR: S1 and S2 present. No murmurs, rubs, or gallops. PULMONARY: Chest is clear to auscultation, no wheezing or crackles. ABDOMEN: Soft, nontender, nondistended, normoactive bowel sounds. No palpable organomegaly. MUSCULOSKELETAL: No joint swelling or deformity. EXTREMITIES: No cyanosis, clubbing, or pedal edema. NEUROLOGICAL: Gross neurological examination did not reveal any focal deficits. SKIN: No rashes. no petechiae. - Labs CBC & Chem 7: 08/27/21 05:53 08/26/21 19:10 Assessment and Plan Assessment: Acute bilateral PE-Acute bilateral pulmonary embolism, with near complete israel ling defect in the right main pulmonary artery which extends into the right upper lobar pulmonary artery, right middle and right lower lobe pulmonary arteries. Include addition to complete occlusion of the right lower lobe segmental pulmonary artery Hemoptysis secondary to above History of seizure disorder Plan: This is a pleasant 50 years old female presents with acute bilateral PE Continue with high dose heparin drip Follow-up with vascular team consult Pulmonary consult Check echocardiogram Labs and medication were reviewed.. Continue same treatment. Continue with symptomatic treatment. Resume home medication. Monitor lytes and vitals. DVT and GI prophylaxis. Further recommendations depends on the clinical course of the patient DVT prophylaxis: heparin GI Prophylaxis: Pepcid Prognosis is guarded
[2021-08-28 10:58] LABS: Basophils % (A) 0 %; Eosinophils # (A) 0.1 k/uL (0-0.7); Eosinophils % (A) 2 %; HCT 36.3 % (34.0-46.0); HGB 11.9 gm/dL (11.4-16.0); Lymphocytes # (A) 1.6 k/uL (1.0-4.8); Lymphocytes % (A) 25 %; MCH 29.8 pg (25.0-35.0); MCHC 32.7 g/dL (31.0-37.0); MCV 90.9 fL (80.0-100.0); Mean Platelet Volume 6.7; Monocytes # (A) 0.3 k/uL (0-1.0); Monocytes % (A) 5 %; Neutrophils # (A) 4.1 k/uL (1.3-7.7); Neutrophils % (A) 66 %; Platelet Count 406 k/uL (150-450); RDW 12.7 % (11.5-15.5); WBC 6.2 k/uL (3.8-10.6)
[2021-08-28] MEDS: APIXABAN 5 MG TAB PO SCH ×2 (11:43→17:54)
--- NOTE | 2021-08-28 14:38 | P.PN ---
Subjective Progress Note Date: 08/28/21 Principal diagnosis: Dyspnea, hypoxia, pneumonia 50-year-old female patient with past medical history of seizure disorder, previous history of hysterectomy who developed symptoms of diarrhea 3 weeks ago. She tested positive for COVID 19 on an outpatient basis. Presented to the emergency department on 08/26/2021 with complaints of worsening cough, hemoptysis, epigastric abdominal discomfort and posterior right rib area discomfort with coughing. She initially went to her primary care physician who started her on steroids and antibiotics this week. She states she has been unable to tolerate steroids, but did complete antibiotics yesterday. Chest x- ray showed no acute pulmonary abnormality. Laboratory evaluation revealed CBC within normal limits, elevated d-dimer of 3.92, electrolytes and renal profile were unremarkable, troponin was less than 0.012, patient did test positive for COVID-19 via PCR test. CTA chest was completed based on the elevated d-dimer level, showing multiple occlusive and nonocclusive filling defects in the left lower lobe lobar artery extending to the bifurcation point, and a near complete filling defect in the right main pulmonary artery which extends into the right upper lobar pulmonary artery, right middle and right lower lobar pulmonary arteries and complete occlusion of the right lower lobe segmental pulmonary artery. There are scattered glasslike opacities concerning for multifocal infection, and right lower lobe wedge shaped opacity concerning for pulmonary infarction. Based on those findings patient was started on high intensity heparin infusion. Is on 2 L of oxygen her pulse ox is 100%, hemodynamically she stable, she is afebrile. On 08/28/2021 patient seen in follow-up on selective care unit, she is awake and alert, oriented 3, she is currently on room air, breathing very comfortably, earlier today she was sat 97% on 2 L, no fever or chills, vital signs have been stable, she remains on heparin infusion for acute pulmonary emboli, she has had no complaints of chest discomfort. No hemoptysis, vital signs have been stable overnight, patient is up ambulating in the room tolerating activity very well. Her lower extremity Dopplers were negative for PE. Echocardiogram showed normal EF of 55-60%, right ventricle was normal in size, no evidence of right ventricular strain, no evidence of pulmonary hypertension and right-sided pressures were 23.7 mmHg. She is stable for transitioning over to oral anti coagulation from pulmonary standpoint. She continues on oral Decadron 6 mg daily and multivitamins. Objective - Vital Signs Vital signs: Vital Signs Temp 98.0 F 08/28/21 08:53 Pulse 78 08/28/21 12:00 Resp 18 08/28/21 08:53 BP 131/73 08/28/21 08:53 Pulse Ox 97 08/28/21 08:53 Intake & Output 08/27/21 08/28/21 08/28/21 19:59 06:59 18:59 Intake Total 368 Balance 368 Intake: IV Invasive Line 2 Intake, IV Titration 250 Amount Heparin Sod,Pork in 0.45% 250 NaCl 25,000 unit In 0.45 % NaCl 1 250ml.bag @ 18 UNITS/KG/HR 12.819 mls/hr IV .[id number] [facility] Rx#: [id number] Oral 118 Other: Voiding Method Toilet # Voids - Exam GENERAL EXAM: Alert, pleasant, 50-year-old white female, on room air, ambulating in the room comfortable in no apparent distress. HEAD: Normocephalic/atraumatic. EYES: Normal reaction of pupils, equal size. Conjunctiva pink, sclera white. NOSE: Clear with pink turbinates. THROAT: No erythema or exudates. NECK: No masses, no JVD, no thyroid enlargement, no adenopathy. CHEST: No chest wall deformity. Symmetrical expansion. LUNGS: Equal air entry with rhonchi and rales CVS: Regular rate and rhythm, normal S1 and S2, no gallops, no murmurs, no rubs ABDOMEN: Soft, nontender. No hepatosplenomegaly, normal bowel sounds, no guarding or rigidity. EXTREMITIES: No clubbing, no edema, no cyanosis, 2+ pulses and upper and lower extremities. MUSCULOSKELETAL: Muscle strength and tone normal. SPINE: No scoliosis or deformity SKIN: No rashes CENTRAL NERVOUS SYSTEM: Alert and oriented -3. No focal deficits, tone is normal in all 4 extremities. PSYCHIATRIC: Alert and oriented -3. Appropriate affect. Intact judgment and insight. - Labs CBC & Chem 7: 08/28/21 10:37 08/26/21 19:10 Labs: Abnormal Lab Results - Last 24 Hours (Table) 08/28/21 08/28/21 Range/Units 10:37 10:37 APTT 53.9 H (22.0-30.0) sec C-Reactive Protein 2.0 H (<1.0) mg/dL Assessment and Plan Plan: Assessment: #1. Acute hypoxic respiratory failure related to bilateral pulmonary emboli and right lower lobe pulmonary infarction. This is likely provoked by recent COVID- 19 pneumonia. No evidence of RV strain on the echocardiogram, lower extremity Dopplers were negative for DVT. Patient will be transitioned over to Eliquis today #2. COVID-19 related pneumonia, with initial onset of symptoms 3 weeks ago. Patient is outside the window for Remdesivir, she will be started on oral Decadron 6 mg daily #3. History of seizure disorder #4. History of hysterectomy Plan: Hemodynamically patient is stable Echocardiogram results have been noted, no evidence of RV strain and no pulmonary hypertension Lower extremity Dopplers were negative for DVT Patient is on room air, breathing comfortably Vital signs have been stable Start the patient on Eliquis 10 mg twice daily and discontinue heparin infusion From pulmonary perspective she can be considered for discharge home today Taking complete 10 day course of Decadron, and she will continue on oral anticoagulation Outpatient follow-up with Dr. Peralta any office in 2 weeks I performed a history & physical examination of the patient and discussed their management with my nurse practitioner, Emily Guzman. I reviewed the nurse practitioner's note and agree with the documented findings and plan of care. Lung sounds are positive for bilateral crackles throughout the lung dumont. The findings and the impression was discussed with the patient. I attest to the d ocumentation by the nurse practitioner. Time with Patient: Less than 30
[2021-08-28 18:19] VITALS: BP 140/78; PULSE 71
[2021-08-28] MEDS ORDERED: ZONISAMIDE 100 MG CAP PO SCH (21:00)
[2021-09-04] MEDS ORDERED: APIXABAN 5 MG TAB PO SCH (09:00)
== END 2021-08-28 18:16 | disposition home or self-care (01) | DRG 177 ==
LOC: EC 15:28 → 3SCARD 08-27 01:39
PROVIDERS: ADMIT Internal Medicine; ATTEND Internal Medicine
DX: U07.1 COVID-19 (principal); I26.99 Other pulmonary embolism without acute cor pulmonale; J12.82 Pneumonia due to coronavirus disease 2019; J96.01 Acute respiratory failure with hypoxia; R04.2 Hemoptysis; G40.909 Epilepsy, unspecified, not intractable, without status epilepticus; Z79.899 Other long term (current) drug therapy; Z90.710 Acquired absence of both cervix and uterus
CPT/HCPCS: 36415; 71046; 71275; 80053; 83615; 83735; 84484; 85025; 85379; 85610; 85730; 86140; 87635; 93005; 93306; 93970; 99285

== ENCOUNTER → 2021-10-04 | Outpatient (CLI) | payer BC ==
--- NOTE | 2021-10-04 13:15 | CT ---
EXAMINATION TYPE: CT angio chest DATE OF EXAM: 10/04/2021 1:05 PM COMPARISON: 08/26/2021 HISTORY: Other pulmonary embolism without acute CT DLP: 518 mGycm Automated exposure control for dose reduction was used. CONTRAST: CTA scan of the thorax is performed with IV Contrast, patient injected with 100, wasted 26 mL of Isov ue 370, pulmonary embolism protocol. . FINDINGS: LUNGS: Hyperinflation noted. There is a 5 mm subpleural nodule right middle lobe axial image 77. Grou ndglass changes and subsegmental consolidation seen involving the lung bases most typical of atelecta sis. Additional 4 mm nodule anterior segment right upper lobe axial image 71. MEDIASTINUM: There is satisfactory enhancement of the pulmonary artery and its branches, there is no CT evidence for pulmonary embolism. There are no greater than 1 cm hilar or mediastinal lymph nodes. No pericardial effusion is seen. OTHER: Hypertrophic and degenerative change of the spine. IMPRESSION: 1. No CT evidence of pulmonary embolism. 2. Bilateral subsegmental areas of consolidation correlate for atelectasis. Over pneumonitis correlat e clinically. 3. 5 mm or less pulmonary nodules too small to characterize recommend 6 month follow-up CT scan darvin segundo.
== END | disposition home or self-care (01) ==
LOC: RADCTMAIN 12:38
PROVIDERS: ATTEND Family Medicine
DX: J98.4 Other disorders of lung (principal)
CPT/HCPCS: 71275; Q9967

== ENCOUNTER → 2022-01-10 | Outpatient (CLI) | payer BC ==
--- NOTE | 2022-01-10 11:44 | US ---
EXAMINATION TYPE: US kidneys/renal and bladder DATE OF EXAM: 01/10/2022 COMPARISON: NONE CLINICAL HISTORY: R31.9 HEMATURIA. Hematuria. Left-sided pain. EXAM MEASUREMENTS: Right Kidney: 11.1 x 5.4 x 4.5 cm Left Kidney: 12.1 x 4.3 x 4.4 cm Right Kidney: No hydronephrosis or masses seen Left Kidney: Measures upper limits of normal versus minimally enlarged. 3 hyperechoic foci with twink le artifact seen within the kidney, largest measures 0.6 x 0.7 x 0.4 cm. Pyramids appear prominent. Bladder: Appears anechoic. Bilateral Jets seen: Yes Urinary bladder is satisfactory distended without intraluminal mass or wall thickening. Bilateral dis melba ureter jets seen. Right kidney shows no worrisome mass or hydronephrosis. Left kidney shows hyper echoic foci could reflect small nonobstructing calculi. IMPRESSION: Suspect small nonobstructing left renal calculi. Correlate clinically. Consider CT confir mation based on clinical correlation. No hydronephrosis noted bilaterally.
== END | disposition home or self-care (01) ==
LOC: RADUSWWP 10:24
PROVIDERS: ATTEND Family Medicine
DX: R31.9 Hematuria, unspecified (principal)
CPT/HCPCS: 76770

== ENCOUNTER → 2022-01-13 | Outpatient (CLI) | payer BC ==
--- NOTE | 2022-01-13 10:20 | XR ---
EXAMINATION TYPE: XR KUB DATE OF EXAM: 01/13/2022 10:10 AM CLINICAL HISTORY: Left-sided kidney stones. TECHNIQUE: Two supine KUB images of the abdomen are obtained. COMPARISON: Renal ultrasound 3 days ago. FINDINGS: Approximately 3-5 left renal calculi including dominant 11 mm calculus at the mid to inferi or L3 level inferior. No definitive right-sided nephrolithiasis. Scattered bilateral pelvic phlebolit hs are present. Overall nonobstructive bowel gas pattern. Lung bases are clear. Visualized osseous structures are int act. Overlying metallic umbilical ornament. IMPRESSION: As above.
== END | disposition home or self-care (01) ==
LOC: RADXRMAIN 09:52
PROVIDERS: ATTEND Urology
DX: N20.0 Calculus of kidney (principal); I87.8 Other specified disorders of veins
CPT/HCPCS: 74018

== ENCOUNTER → 2022-02-01 | Outpatient (CLI) | payer BC ==
[2022-02-01 11:47] LABS: Appearance,Urine Cloudy (Clear); Bilirubin,Urine Negative (Negative); Blood,Urine Large (Negative); Calcium Oxalate Crystals,Urine Rare /hpf; Color,Urine Yellow; Glucose,Urine (UA) Negative (Negative); Hyaline Casts,Urine 1 /lpf (0-2); Ketones,Urine Negative (Negative); Leukocyte Esterase,Urine Large (Negative); Mucus,Urine Occasional /hpf; Nitrite,Urine Negative (Negative); Protein,Urine 1+ (Negative); RBC,Urine >182 /hpf (0-5); Specific Gravity,Urine 1.018 (1.001-1.035); Squamous Epithelial Cell,Urine 1 /hpf (0-4); Urobilinogen,Urine <2.0 mg/dL (<2.0); WBC,Urine 15 /hpf (0-5)
[2022-02-01 14:42] LABS: Basophils # (A) 0.03 X 10*3/uL (0.00-0.10); Basophils % (A) 0.8 %; Eosinophils # (A) 0 X 10*3/uL (0.04-0.35); Eosinophils % (A) 0 %; HCT 42.3 % (37.2-46.3); HGB 13.6 g/dL (12.0-15.0); Immature Grans, Automated 0.3 %; Lymphocytes # (A) 1.32 X 10*3/uL (0.90-5.00); Lymphocytes % (A) 36.1 %; MCH 29.3 pg (27.0-32.0); MCHC 32.2 g/dL (32.0-37.0); MCV 91.2 fL (80.0-97.0); Mean Platelet Volume 9.4 fL (9.5-12.2); Monocytes % (A) 8.2 %; NRBC Per 100 WBC 0 /100 WBCS (0.0-0.0); Neutrophils % (A) 54.6 %; Platelet Count 229 X 10*3/uL (140-440); RBC 4.64 X 10*6/uL (4.10-5.20); WBC 3.66 X 10*3/uL (4.50-10.00)
[2022-02-01 14:56] LABS: African American GFR (CKD) 76.1 (60.0-200.0); Anion Gap 11.7 mmol/L (10.00-18.00); Blood Urea Nitrogen 11.5 mg/dL (9.0-27.0); Carbon Dioxide 22.3 mmol/L (20.0-27.5); Non-African American GFR(CKD) 65.6 (60.0-200.0); Potassium 3.7 mmol/L (3.5-5.5)
== END | disposition home or self-care (01) ==
LOC: LABPAT 10:37
PROVIDERS: ATTEND Urology
DX: Z01.812 Encounter for preprocedural laboratory examination (principal); N20.0 Calculus of kidney; R31.0 Gross hematuria
CPT/HCPCS: 36415; 80051; 81001; 82565; 84520; 85025

== ENCOUNTER 2022-02-06 10:04 | Day surgery (SDC) | payer BC ==
[2022-02-02 12:45] VITALS: BMI 29.5
--- NOTE | 2022-02-05 19:16 | P.GSHP ---
History of Present Illness H&P Date: 02/05/22 51 yo female with gross hematuria secondary to a kidney stone, 11 mm in the left renal pelvis. SHe comes for eswl left. Alternatives have been discussed. - Constitutional Constitutional: Denies chills, Denies fever - EENT Eyes: denies blurred vision, denies pain Ears, nose, mouth and throat: Denies headache, Denies sore throat - Cardiovascular Cardiovascular: Denies chest pain, Denies shortness of breath - Respiratory Respiratory: Denies cough, Denies 7 - Gastrointestinal Gastrointestinal: Denies abdominal pain, Denies diarrhea, Denies nausea, Denies vomiting - Genitourinary (Female) Genitourinary: Denies dysuria, Denies hematuria - Genitourinary (Male) Genitourinary: Denies dysuria, Denies hematuria - Musculoskeletal Musculoskeletal: Denies myalgias - Integumentary Integumentary: Denies pruritus, Denies rash - Neurological Neurological: Denies numbness, Denies weakness - Psychiatric Psychiatric: Denies anxiety, Denies depression - Endocrine Endocrine: Denies fatigue, Denies weight change Past Medical History Past Medical History: GERD/Reflux, Hypertension, Pulmonary Embolus (PE), Seizure Disorder Additional Past Medical History / Comment(s): epilepsy -HAS SEIZURES DAILY (FOCAL AWARENESS SEIZURES-AFFECTS LEFT SIDE UPPER AND LOWER EXTREMITIES-CAUSES QUICK SPASM LIKE CONTRACTIONS THAT LAST 10-15 SECONDS). KIDNEY STONES. BILAT PE 08/28/21 History of Any Multi-Drug Resistant Organisms: None Reported Past Surgical History: Hysterectomy Additional Past Surgical History / Comment(s): BUNION BILAT FEET Past Anesthesia/Blood Transfusion Reactions: No Reported Reaction Additional Past Anesthesia/Blood Transfusion Reaction / Comment(s): PT STATES ANESTHESIA WILL CAUSES SEIZURE-HAS SEIZURES DAILY (FOCAL AWARENESS SEIZURES- AFFECTS LEFT SIDE UPPER AND LOWER EXTREMITIES-CAUSES QUICK SPASM LIKE CONTRA CTIONS THAT LAST 10-15 SECONDS) Smoking Status: Never smoker - Past Family History Mother Family Medical History: No Reported History Medications and Allergies Home Medications Medication Instructions Recorded Confirmed Type clonazePAM [KlonoPIN] 0.5 mg PO TID PRN 04/11/14 02/02/22 History lamoTRIgine [LaMICtal] 200 mg PO TID 04/11/14 02/02/22 History Losartan [Cozaar] 25 mg PO DAILY 08/26/21 02/02/22 History Zonisamide [Zonegran] 200 mg PO DAILY@1500,2200 08/26/21 02/02/22 History lamoTRIgine [LaMICtal] 100 mg PO HS PRN 08/26/21 02/02/22 History levETIRAcetam [Keppra] 1,000 mg PO HS 08/26/21 02/02/22 History Ascorbic Acid [Vitamin C] 500 mg PO BID #60 tab 08/28/21 02/02/22 Rx Cholecalciferol [Vitamin D3 (25 25 mcg PO DAILY #30 tablet 08/28/21 02/02/22 Rx Mcg = 1000 Iu)] Zinc Sulfate [Orazinc] 220 mg PO DAILY #30 cap 08/28/21 02/02/22 Rx Allergies Allergy/AdvReac Type Severity Reaction Status Date / Time carbamazepine [From Tegretol] Allergy Rash/Hives Verified 02/02/22 12:23 phenytoin sodium Allergy Rash/Hives Verified 02/02/22 12:23 [From Dilantin] phenytoin sodium extended Allergy Rash/Hives Verified 02/02/22 12:23 [From Dilantin] Surgical - Exam - General well developed, well nourished, no distress - ENT no hearing loss - Neck trachea midline - Respiratory normal expansion, normal respiratory effort - Cardiovascular Rhythm: regular - Abdomen Abdomen: soft, non tender - Integumentary no rash, no growths - Neurologic normal coordination, normal sensation - Musculoskeletal normal gait, normal posture - Psychiatric oriented to time, oriented to person, oriented to place, speech is normal, memory intact Assessment and Plan Assessment: Impression: left renal stone, 11 mm Plan: eswl left
[~2022-02-06 10:04] MED LIST: DEXAMETHASONE SOD PHOSPHATE 4 MG/ML 1 ML VIAL IV ONE; HYDROmorphone 0.5 MG/0.5 ML SYRINGE IVP PRN; LACTATED RINGERS 1,000 ML IV SCH; ONDANSETRON 4 MG/2 ML VIAL IVP ONE
--- NOTE | 2022-02-06 10:45 | XR ---
EXAMINATION TYPE: XR KUB DATE OF EXAM: 02/06/2022 HISTORY: Pain Comparison: 01/13/2022 Single KUB is submitted for interpretation. Findings: Right renal calculi: None Visualized. Right ureteral calculi: None Visualized. Left renal calculi: Multiple left-sided renal calculi noted measuring up to 6.3 mm. Left ureteral calculi: None Visualized. Pelvic calcifications: Multiple pelvic calcifications persists. Bowel gas pattern is unremarkable. No free air. No mass effects. IMPRESSION: 1. As above
[2022-02-06 10:53] VITALS: TEMP 97.9
[2022-02-06] MEDS ORDERED: MIDAZOLAM 2 MG/2 ML VIAL ONE (11:05)
[2022-02-06] MEDS ORDERED: fentaNYL (PF) 50 MCG/ML 2 ML AMP ONE (11:05)
[2022-02-06] MEDS ORDERED: PROPOFOL 10 MG/ML 20 ML VIAL IV ONE (11:05)
--- NOTE | 2022-02-06 11:37 | P.OP ---
Date of Procedure: 02/06/22 Preoperative Diagnosis: Left renal stones Postoperative Diagnosis: Same Procedure(s) Performed: Extra portal shockwave lithotripsy 2500 shocks at a level IV Anesthesia: MAC Surgeon: Benedict Dumont Pathology: none sent Condition: stable Disposition: PACU Indications for Procedure: Patient is 51. She has gross hematuria. X-rays identified a lobular stone in the left renal pelvis measuring over 11 mm. She comes for shockwave lithotripsy. There is a smaller stones[ 3 mm] in the middle pole calyx he will treat if we are able to. Description of Procedure: Patient is brought to the operating suite. On the lithotripsy table she's given IV sedation. The left renal stone is 2 views of fluoroscopy with the compact to lithotripter. The energy level IV 2500 shocks are administered to the left renal stone and its fragments and the stone fractures nicely. Then procedure the patient awake and returned recovery in good condition. She tolerated procedure well be discharged home upon recovery.
[2022-02-06] MEDS ORDERED: ACETAMINOPHEN TAB 500 MG TAB ONE (12:03)
[2022-02-06] MEDS ORDERED: ACETAMINOPHEN TAB 500 MG TAB PO ONE (12:05)
[2022-02-06 12:31] VITALS: BP 146/94; PULSE 74; RESP 17
== END 2022-02-06 12:50 | disposition home or self-care (01) ==
LOC: ORWHC2ENDO 10:04
PROVIDERS: ATTEND Urology
DX: N20.0 Calculus of kidney (principal); I10 Essential (primary) hypertension; G40.909 Epilepsy, unspecified, not intractable, without status epilepticus; K21.9 Gastro-esophageal reflux disease without esophagitis; Z79.899 Other long term (current) drug therapy; Z88.8 Allergy status to other drugs, medicaments and biological substances; Z86.711 Personal history of pulmonary embolism; Z90.710 Acquired absence of both cervix and uterus; Z98.890 Other specified postprocedural states
CPT/HCPCS: 74018; 50590; J2250; J1100; J2405; J3010; J2704

== ENCOUNTER → 2022-02-14 | Outpatient (CLI) | payer BC ==
--- NOTE | 2022-02-14 11:01 | XR ---
EXAMINATION TYPE: XR KUB DATE OF EXAM: 02/14/2022 10:46 AM CLINICAL HISTORY: Kidney stones. TECHNIQUE: Two supine KUB images of the abdomen are obtained. COMPARISON: Abdominal x-ray February 06, 2022. CT abdomen and pelvis January 26, 2022 FINDINGS: Some obscuring of kidneys by overlying colonic fecal debris. Prior dominant central to patti cent 6 mm calculi are not clearly seen on current study. Suspect successful interval fragmentation or treatment. There are approximately 4-5 smaller scattered left renal calculi redemonstrated. Multiple scattered bilateral pelvic phleboliths redemonstrated. Overall nonobstructive bowel gas pattern. Visualized osseous structures are intact. Overlying metalli c umbilical ornament redemonstrated. IMPRESSION: As above.
== END | disposition home or self-care (01) ==
LOC: RADXRMAIN 10:32
PROVIDERS: ATTEND Urology
DX: N20.0 Calculus of kidney (principal); I87.8 Other specified disorders of veins
CPT/HCPCS: 74018

== ENCOUNTER → 2022-03-31 | Outpatient (CLI) | payer BC ==
--- NOTE | 2022-03-31 12:29 | CT ---
EXAMINATION TYPE: CT chest w con DATE OF EXAM: 03/31/2022 COMPARISON: 10/04/2021 HISTORY: 51-year-old female R91.1, Lung nodules TECHNIQUE: Contiguous axial scanning of the chest after the administration of 70 mL of Isovue 300. C oronal/sagittal reconstructions performed. CT DLP: 288.9mGycm. Automatic exposure control utilized for a dose reduction. FINDINGS: Heart normal sinus with trace pericardial fluid. Aorta normal caliber with conventional arch vessel branching anatomy. No thoracic lymphadenopathy by CT size criteria. A couple tiny 3 mm pulmonary nodules along the minor fissure anterior right midlung, axial image 34 a re unchanged. 5 mm subpleural pulmonary nodule posteromedial right lung base unchanged, axial image 48. No new consolidation or pleural effusion. Strandy right basilar atelectasis or scarring partially imp roved from prior exam. Visualized upper abdomen shows low attenuation of the hepatic parenchyma suggesting fatty infiltratio n. Partially visualized nonobstructive 5 mm left renal calculus. Moderate stool burden. Bones: No osseous destructive process. IMPRESSION: 1. A few pulmonary nodules on the right remain unchanged for 6 months measuring up to 5 mm. Additiona l one-year follow-up can be performed. 2. Strandy scarring or atelectasis at the right base shows some improvement from prior exam. 3. Incidental: Hepatic steatosis and partially visualized 5 mm left renal calculus.
== END | disposition home or self-care (01) ==
LOC: RADCTMAIN 09:23
PROVIDERS: ATTEND Internal Medicine Critical Care Medicine
DX: R91.8 Other nonspecific abnormal finding of lung field (principal); N20.0 Calculus of kidney; K76.0 Fatty (change of) liver, not elsewhere classified; J98.11 Atelectasis; J98.4 Other disorders of lung
CPT/HCPCS: 71260; Q9967

== ENCOUNTER → 2023-05-22 | Outpatient (CLI) | payer BC ==
--- NOTE | 2023-05-22 13:15 | CT ---
EXAMINATION TYPE: CT chest w con CT DLP: 282.60 mGycm, Automated exposure control for dose reduction was used. DATE OF EXAM: 05/22/2023 12:41 PM COMPARISON: Multiple CT chest with most recent 03/31/2022 CLINICAL INDICATION:Female, 52 years old with history of R91.1 SOLITARY PULMONARY NODULE; PHH, f/u adrain ng nodule and hx of PE post covid TECHNIQUE: Multiple axial images were obtained through the chest following the administration of 100 cc of Isovue 300. . MIP was performed Coronal and sagittal reformats reviewed. FINDINGS: LUNGS/ PLEURA: No pleural effusion, pneumothorax, focal consolidation. Linear scarring within the rig ht lower lobe redemonstrated. Stable 3 mm pulmonary nodule along the right anterior midlung minor fi ssure. Stable 5 cm subpleural pulmonary nodule versus scarring posterior medial right lung base. No n ew or enlarging pulmonary nodules. AIRWAY: Patent and unremarkable.. HEART: Size within normal limits. No pericardial effusion. MEDIASTINUM: No evidence of adenopathy. VASCULATURE: No aortic aneurysm. MUSCULOSKELETAL: No acute osseous abnormalities SOFT TISSUES/LYMPH NODES: Unremarkable. LOWER NECK: No significant findings. UPPER ABDOMEN: Diffuse low-attenuation to the liver parenchyma. Nonobstructive right renal 3 mm calcu ned. IMPRESSION: 1. Stable few scattered pulmonary nodules measuring up to 5 mm dating back to 2020 and now considered benign due to stability. No new or enlarging pulmonary nodules. 2. Hepatic steatosis. 3. Nonobstructive right renal 3 mm calculus.
== END | disposition home or self-care (01) ==
LOC: RADCTMAIN 12:14
PROVIDERS: ATTEND Internal Medicine Critical Care Medicine
DX: K76.0 Fatty (change of) liver, not elsewhere classified (principal); N20.0 Calculus of kidney; R91.8 Other nonspecific abnormal finding of lung field; Z86.16 Personal history of COVID-19; Z86.711 Personal history of pulmonary embolism
CPT/HCPCS: 71260; Q9967